=== PATIENT | male | born 1950 | race Caucasian/White ===

== ENCOUNTER 2020-09-17 10:59 | Inpatient (IN) | payer BC, MEDICARE ==
[~2020-09-17] VITALS: Ht 177.8 cm; Wt 88.6 kg
[2020-09-17] VITALS (8 sets, daily range): BP systolic 135–182; BP diastolic 62–83
[~2020-09-17 10:59] MED LIST: ASPI-1265 PO; ATOR10TA87 PO; CLOP75TA34 PO; LOP25T PO; RANI-320 PO
[2020-09-17] MEDS ORDERED: ipratropium/albuterol 3ml nebule NEB ONE (11:40)
[2020-09-17] MEDS ORDERED: methylPREDNISolone sod succ 125mg/2ml vial IV ONE (11:40)
[2020-09-17 12:20] LABS: BASOPHILS % (AUTO) 0.3 % (0-1); EOSINOPHILS % (AUTO) 0.5 % (0-6); HEMATOCRIT 48.3 % (42.0-52.0); HEMOGLOBIN 16.3 g/dl (14.0-17.9); LYMPHOCYTES # (AUTO) 1.1 X10'3 (1.1-4.8); LYMPHOCYTES % (AUTO) 11.3 % (21-51); MEAN CORPUSCULAR HEMOGLOBIN 33.4 PG (27.0-31.0); MEAN CORPUSCULAR HGB CONC 33.8 g/dL (33.0-36.5); MEAN PLATELET VOLUME 8.2 FL (7.4-10.4); MONOCYTES # (AUTO) 1.1 X10'3 (0-0.9); MONOCYTES % (AUTO) 10.9 % (2-12); NEUTROPHILS # (AUTO) 7.6 X10'3 (1.8-7.7); PLATELET COUNT 227 X10'3 (140-440); RED BLOOD COUNT 4.88 X10'6 (4.70-6.10); WHITE BLOOD COUNT 9.9 X10'3 (4.5-11.0)
--- NOTE | 2020-09-17 12:38 | NUR ---
Chris CRISTOBAL notified of troponin of 5.17 and patient is Afib on monitor. PA to order aspirin.
[2020-09-17 12:40] LABS: ALANINE AMINOTRANSFERASE 49 U/L (12-78); ALBUMIN 3.7 G/DL (3.4-5.0); ALBUMIN/GLOBULIN RATIO 1.1 (1.1-1.5); ALKALINE PHOSPHATASE 89 IU/L (46-116); ANION GAP 11 (8-16); ASPARTATE AMINO TRANSFERASE 52 U/L (10-37); BILIRUBIN,TOTAL 0.7 MG/DL (0.1-1.0); BLOOD UREA NITROGEN 15 MG/DL (7-18); BUN/CREATININE RATIO 10.1 (5.4-32.0); CALCIUM 8.4 MG/DL (8.5-10.1); CHLORIDE 104 MMOL/L (99-107); CREATININE 1.49 MG/DL (0.60-1.10); GLUCOSE 93 MG/DL (70-104); POTASSIUM 4.9 MMOL/L (3.5-5.1); SODIUM 141 MMOL/L (135-145); eGFR 46 ML/MIN
[2020-09-17] MEDS ORDERED: aspirin 325mg tablet PO ONE (12:40)
[2020-09-17] MEDS ORDERED: nitroGLYCERIN 0.4mg/hour patch TD ONE (12:55)
[2020-09-17] MEDS ORDERED: METF-900 PO (13:00)
[2020-09-17] MEDS ORDERED: METO25TA6 PO (13:00)
[2020-09-17] MEDS ORDERED: ALBU17AE26 PO (13:00)
[2020-09-17] MEDS ORDERED: IPRA3AMP31 NEB (13:00)
[2020-09-17] MEDS ORDERED: OMEP-50 PO (13:00)
[2020-09-17] MEDS ORDERED: ondansetron/PF 4mg/2ml inj IV PRN ×2 (13:10→20:40)
[2020-09-17] MEDS ORDERED: mag hydrox/Alum hydrox/simeth 30ml oral suspension PO PRN (13:10)
[2020-09-17] MEDS ORDERED: MESSAGE TO PHARMACY PO ONE (13:10)
[2020-09-17] MEDS ORDERED: albuterol 2.5 MG/3 ML nebule NEB PRN (13:10)
[2020-09-17] MEDS ORDERED: magnesium 2GM in 50ml NS 50 ML IV PRN (13:10)
[2020-09-17] MEDS ORDERED: heparin 25,000 UNIT/250ml bag 250 ML IV SCH (13:10)
[2020-09-17] MEDS ORDERED: magnesium 4gm in 100ml NS 100 ML IV PRN (13:10)
[2020-09-17] MEDS ORDERED: insulin Lispro (HumaLOG) vial - multi-dose SQ SCH (13:10)
[2020-09-17] MEDS ORDERED: glucagon, human recombinant 1mg kit SUBCUT PRN (13:10)
[2020-09-17] MEDS ORDERED: dextrose 50%-water 50ml dispensing syringe IV PRN ×2 (13:10)
[2020-09-17] MEDS ORDERED: ipratropium/albuterol 3ml nebule NEB PRN (13:10)
[2020-09-17] MEDS ORDERED: magnesium hydroxide 30ml (MOM) UD suspension PO PRN (13:10)
[2020-09-17] MEDS ORDERED: heparin 10,000 units/1 ML INJ IV PRN (13:10)
[2020-09-17] MEDS ORDERED: dextrose ORAL solution 15 GM/59 ML bottle PO PRN ×2 (13:10)
[2020-09-17] MEDS ORDERED: potassium Cl 40MEQ/1/2NS 520ml 520 ML IV PRN ×2 (13:10)
[2020-09-17] MEDS ORDERED: heparin 10,000 units/1 ML INJ IV ONE (13:10)
[2020-09-17] MEDS ORDERED: acetaminophen 325mg tablet PO PRN (13:10)
[2020-09-17] MEDS ORDERED: potassium Cl 20 mEq SR tablet PO PRN ×2 (13:10)
[2020-09-17 13:38] LABS: PARTIAL THROMBOPLASTIN TIME 25 SECONDS (22-32)
[2020-09-17 14:59] LABS: HEMOGLOBIN A1C 5.8 % (4.5-6.2)
--- NOTE | 2020-09-17 15:11 | NUR ---
Dr. Jerome notified of troponin 6.51. No new orders.
[2020-09-17] MEDS ORDERED: atorvastatin 20mg tablet PO ONE (16:10)
--- NOTE | 2020-09-17 18:08 | NUR ---
DR. HOUSTON NOTIFIED OF TROPONIN 9.19
[2020-09-17] MEDS ORDERED: heparin 1,000unit/ml 10ml vial 10 ML ONE (18:50)
[2020-09-17] MEDS ORDERED: LIDOcaine 1% (10mg/ml)w/preservative injection 20ml MDV ONE (18:50)
[2020-09-17] MEDS ORDERED: midazolam 1 mg/ML 2ml injection ONE ×3 (18:50→19:53)
[2020-09-17] MEDS ORDERED: fentaNYL/PF 50MCG/1 ML 2ML syringe ONE (18:50)
[2020-09-17] MEDS ORDERED: iohexol 350 MG/ML 50ML vial IV ONE (18:51)
[2020-09-17] MEDS ORDERED: iohexol 350MG/ML 100ml bottle IV ONE ×2 (18:51→19:33)
[2020-09-17] MEDS: K and/or MAG REPLACEMENT MC SCH (20:00)
[2020-09-17] MEDS ORDERED: ticagrelor 90mg tablet ONE (20:01)
[2020-09-17] MEDS ORDERED: hydrALAZINE 20mg/ml inj. IV ONE (20:01)
[2020-09-17] MEDS ORDERED: HYDROcodone/acetaminophen 10/325mg tab PO PRN (20:40)
[2020-09-17] MEDS ORDERED: nitroGLYCERIN 0.4mg SUBLingual tab SL PRN (20:40)
[2020-09-17] MEDS ORDERED: OXAZEpam 15mg capsule PO PRN (20:40)
[2020-09-17] MEDS ORDERED: normal saline 1000ml 1,000 ML IV SCH (20:40)
[2020-09-17] MEDS ORDERED: HYDROcodone/acetaminophen 5mg/325mg tablet PO PRN (20:40)
[2020-09-17] MEDS ORDERED: proCHLORperazine 10 MG/2 ml inj IV PRN (20:40)
[2020-09-17] MEDS ORDERED: insulin glargine (Lantus) pen - multi-dose SQ SCH (21:00)
[2020-09-17] MEDS ORDERED: zolpidem 5mg tablet PO SCH (21:00)
[2020-09-17] MEDS: metoprolol tartrate 25mg tablet PO SCH (21:00)
[2020-09-17] MEDS: normal saline 1000ml 1,000 ML IV SCH (21:01)
[2020-09-17] MEDS ORDERED: cloNIDine 0.1 mg tablet PO PRN (21:45)
--- NOTE | 2020-09-17 22:00 | NUR ---
Patient pulled iv out attempting to urinate. Patient disoriented, got up from bed. IV fluids were finished. no IV access, will attempt new access. Groin site no hematoma or issues noted.. Patient returned to bed, bed alarm in use. Patient reminded of call light at bedside, reoriented. Vital signs stable.
--- NOTE | 2020-09-17 23:22 | NUR ---
spoke with patient about use of CPAP at night orders. Patient states he doesn't wear one at home, he returned his unit years ago. I asked him if he'd be willing to try one of ours and he refused. ALICIA corcoran
[2020-09-18 00:15] VITALS: BP 129/64
[2020-09-18 01:15] VITALS: BP 142/69
[2020-09-18] MEDS: normal saline 1000ml 1,000 ML IV SCH (01:40)
[2020-09-18 02:15] VITALS: BP 142/69
[2020-09-18 06:23] LABS: ALANINE AMINOTRANSFERASE 39 U/L (12-78); ALBUMIN 3.3 G/DL (3.4-5.0); ALBUMIN/GLOBULIN RATIO 1.1 (1.1-1.5); ALKALINE PHOSPHATASE 76 IU/L (46-116); ANION GAP 11 (8-16); ASPARTATE AMINO TRANSFERASE 53 U/L (10-37); BILIRUBIN,TOTAL 0.8 MG/DL (0.1-1.0); BLOOD UREA NITROGEN 19 MG/DL (7-18); BUN/CREATININE RATIO 15.8 (5.4-32.0); CALCIUM 8.5 MG/DL (8.5-10.1); CHLORIDE 105 MMOL/L (99-107); CHOL/HDL RATIO 2.5 (0.00-4.99); CHOLESTEROL 160 MG/DL (0-200); GLUCOSE 140 MG/DL (70-104); HDL CHOLESTEROL 63 MG/DL (35-60); LDL CHOLESTEROL 83 MG/DL (50-100); MAGNESIUM 2.5 MG/DL (1.5-2.4); POTASSIUM 4.6 MMOL/L (3.5-5.1); SODIUM 137 MMOL/L (135-145); TOTAL CARBON DIOXIDE 21.5 MMOL/L (24-32); TOTAL PROTEIN 6.3 G/DL (6.4-8.2); TRIGLYCERIDES 117 MG/DL (20-135); eGFR 60 ML/MIN
[2020-09-18 06:25] LABS: BASOPHILS % (AUTO) 0.1 % (0-1); EOSINOPHILS % (AUTO) 0 % (0-6); HEMATOCRIT 44.1 % (42.0-52.0); HEMOGLOBIN 14.9 g/dl (14.0-17.9); LYMPHOCYTES # (AUTO) 0.7 X10'3 (1.1-4.8); MEAN CORPUSCULAR HEMOGLOBIN 33.3 PG (27.0-31.0); MEAN CORPUSCULAR HGB CONC 33.7 g/dL (33.0-36.5); MEAN CORPUSCULAR VOLUME 98.7 FL (78-98); MEAN PLATELET VOLUME 8.3 FL (7.4-10.4); MONOCYTES # (AUTO) 0.5 X10'3 (0-0.9); MONOCYTES % (AUTO) 3.3 % (2-12); NEUTROPHILS # (AUTO) 12.4 X10'3 (1.8-7.7); NEUTROPHILS % (AUTO) 91.6 % (42-75); PLATELET COUNT 207 X10'3 (140-440); RED BLOOD COUNT 4.47 X10'6 (4.70-6.10); WHITE BLOOD COUNT 13.6 X10'3 (4.5-11.0)
[2020-09-18 06:35] VITALS: BP 140/69
[2020-09-18] MEDS ORDERED: pantoprazole 40mg Tablet.DR PO SCH (07:30)
[2020-09-18] MEDS ORDERED: metoprolol tartrate 25mg tablet PO SCH (08:00)
[2020-09-18] MEDS ORDERED: aspirin 81mg tablet.DR PO SCH (08:00)
[2020-09-18] MEDS: K and/or MAG REPLACEMENT MC SCH (08:00)
[2020-09-18] MEDS ORDERED: atorvastatin 20mg tablet PO SCH (08:00)
[2020-09-18] MEDS ORDERED: ticagrelor 90mg tablet PO SCH (08:00)
[2020-09-18] MEDS ORDERED: ROSU5CAP PO (09:17)
[2020-09-18] MEDS ORDERED: TICA90TA PO (09:17)
[2020-09-18] MEDS: metoprolol tartrate 25mg tablet PO SCH (10:22)
[2020-09-18 11:00] VITALS: BP 141/66
[2020-09-18 12:23] VITALS: BP 148/72
== END 2020-09-18 15:41 | disposition home or self-care (01) | DRG 246 ==
LOC: ER 11:01 → ED HOLD 13:07 → MED 3N 20:00
PROVIDERS: ADMIT Family Medicine; ATTEND Family Medicine
PROC: 4A023N7 Measurement of Cardiac Sampling and Pressure, Left Heart, Percutaneous Approach (ICD-10-PCS; principal; 2020-09-17)
PROC: 027036Z Dilation of Coronary Artery, One Artery with Three Drug-eluting Intraluminal Devices, Percutaneous Approach (ICD-10-PCS; 2020-09-17)
PROC: B2111ZZ Fluoroscopy of Multiple Coronary Arteries using Low Osmolar Contrast (ICD-10-PCS; 2020-09-17)
PROC: B2151ZZ Fluoroscopy of Left Heart using Low Osmolar Contrast (ICD-10-PCS; 2020-09-17)
DX: I21.4 Non-ST elevation (NSTEMI) myocardial infarction (principal); N17.0 Acute kidney failure with tubular necrosis; D72.823 Leukemoid reaction; E78.00 Pure hypercholesterolemia, unspecified; E86.0 Dehydration; I10 Essential (primary) hypertension; I25.10 Atherosclerotic heart disease of native coronary artery without angina pectoris; I73.9 Peripheral vascular disease, unspecified; G47.33 Obstructive sleep apnea (adult) (pediatric); J44.9 Chronic obstructive pulmonary disease, unspecified; W18.39XA Other fall on same level, initial encounter; R73.01 Impaired fasting glucose; R55 Syncope and collapse; S00.83XA Contusion of other part of head, initial encounter; Z79.82 Long term (current) use of aspirin; Z79.84 Long term (current) use of oral hypoglycemic drugs; Z79.899 Other long term (current) drug therapy; Z82.49 Family history of ischemic heart disease and other diseases of the circulatory system; Z87.442 Personal history of urinary calculi; Z90.49 Acquired absence of other specified parts of digestive tract; Z95.5 Presence of coronary angioplasty implant and graft; Y93.89 Activity, other specified; Y92.098 Other place in other non-institutional residence as the place of occurrence of the external cause; Y99.8 Other external cause status
CPT/HCPCS: 93306; 93458; 96374; 99285; C9600; 36415; 70450; 71045; 80053; 80061; 82948; 83036; 83735; 83880; 84484; 85025; 85730; 87081; 93005; 94640; 94760; 97116; 97161; 97530; 99152; 99153; A4620; A6258; C1725; C1751; C1760; C1769; C1874; C1894; G0378; J0360; J1644; J1815; J2001; J2250; J2930; J3010; J7030; Q9967

== ENCOUNTER 2021-03-07 06:21 | Day surgery (SDC) | payer BC, MEDICARE ==
[2021-03-07] VITALS (8 sets, daily range): BP systolic 131–138; BP diastolic 60–75
[~2021-03-07] VITALS: Ht 180.3 cm; Wt 93.5 kg
[~2021-03-07 06:21] MED LIST changes: +ALBU17AE26 PO; -ASPI-1265 PO; -ATOR10TA87 PO; -CLOP75TA34 PO; +IPRA3AMP31 NEB; -LOP25T PO; +METF-900 PO; +METO25TA6 PO; +OMEP-50 PO; -RANI-320 PO; +ROSU5CAP PO; +TICA90TA PO
[2021-03-07] MEDS ORDERED: normal saline 1,000 ML IV SCH (06:50)
[2021-03-07] MEDS ORDERED: diphenhydrAMINE 25mg capsule PO PRN (06:50)
[2021-03-07] MEDS ORDERED: TIOT4MIS2 PO (06:59)
[2021-03-07] MEDS ORDERED: ATOR40TA72 PO (06:59)
[2021-03-07] MEDS ORDERED: CLOP75TA34 PO (06:59)
[2021-03-07] MEDS ORDERED: ASPI-1265 PO (07:03)
[2021-03-07] MEDS ORDERED: METO-539 PO (07:03)
[2021-03-07] MEDS ORDERED: METF-436 PO (07:03)
[2021-03-07] MEDS ORDERED: ALBU8HFA PO (07:04)
[2021-03-07 08:05] LABS: ALBUMIN 3.5 G/DL (3.4-5.0); ANION GAP 9 (8-16); BLOOD UREA NITROGEN 19 MG/DL (7-18); BUN/CREATININE RATIO 17.6 (5.4-32.0); CALCIUM 8.7 MG/DL (8.5-10.1); CHLORIDE 106 MMOL/L (99-107); CREATININE 1.08 MG/DL (0.60-1.10); GLUCOSE 132 MG/DL (70-104); MAGNESIUM 2.3 MG/DL (1.5-2.4); POTASSIUM 5.3 MMOL/L (3.5-5.1); SODIUM 139 MMOL/L (135-145); TOTAL CARBON DIOXIDE 24.2 MMOL/L (24-32); eGFR 67 ML/MIN
[2021-03-07 08:08] LABS: BASOPHILS % (AUTO) 0.3 % (0-1); EOSINOPHILS % (AUTO) 0.3 % (0-6); HEMATOCRIT 46.6 % (42.0-52.0); HEMOGLOBIN 15.4 g/dl (14.0-17.9); LYMPHOCYTES # (AUTO) 0.8 X10'3 (1.1-4.8); LYMPHOCYTES % (AUTO) 6.5 % (21-51); MEAN CORPUSCULAR HEMOGLOBIN 31.7 PG (27.0-31.0); MEAN CORPUSCULAR HGB CONC 33.1 g/dL (33.0-36.5); MEAN CORPUSCULAR VOLUME 95.8 FL (78-98); MEAN PLATELET VOLUME 8.7 FL (7.4-10.4); MONOCYTES # (AUTO) 0.4 X10'3 (0-0.9); MONOCYTES % (AUTO) 3.8 % (2-12); NEUTROPHILS # (AUTO) 10.4 X10'3 (1.8-7.7); NEUTROPHILS % (AUTO) 89.1 % (42-75); PLATELET COUNT 233 X10'3 (140-440); RED BLOOD COUNT 4.86 X10'6 (4.70-6.10); RED CELL DISTRIBUTION WIDTH 14.7 % (11.5-14.5); WHITE BLOOD COUNT 11.7 X10'3 (4.5-11.0)
[2021-03-07] MEDS ORDERED: midazolam 1 mg/ML 2ml injection ONE ×3 (08:52→10:45)
[2021-03-07] MEDS ORDERED: heparin 1,000unit/ml 10ml vial 10 ML ONE ×2 (08:52→11:23)
[2021-03-07] MEDS ORDERED: proCHLORperazine 10 MG/2 ml inj ONE (08:52)
[2021-03-07] MEDS ORDERED: fentaNYL/PF 50MCG/1 ML 2ML syringe ONE ×3 (08:52→11:04)
[2021-03-07] MEDS ORDERED: LIDOcaine 1% (10mg/ml)w/preservative injection 20ml MDV ONE (08:52)
[2021-03-07] MEDS ORDERED: iohexol 350 MG/1 ML 200ml bottle ONE (08:53)
[2021-03-07] MEDS ORDERED: verapamil 2.5 mg/ml inj IV ONE (09:49)
[2021-03-07] MEDS ORDERED: nitroGLYCERIN-Tridil 50MG/D5W 250 ML IV ONE (09:49)
[2021-03-07] MEDS ORDERED: iohexol 350 MG/ML 50ML vial IV ONE (10:04)
[2021-03-07] MEDS ORDERED: hydrALAZINE 20mg/ml inj. IV ONE (10:54)
[2021-03-07] MEDS ORDERED: clopidogrel 300mg tablet ONE (11:48)
[2021-03-07] MEDS ORDERED: ondansetron/PF 4mg/2ml inj IV PRN (12:15)
[2021-03-07] MEDS ORDERED: HYDROcodone/acetaminophen 10/325mg tab PO PRN (12:15)
[2021-03-07] MEDS ORDERED: proCHLORperazine 10 MG/2 ml inj IV PRN (12:15)
[2021-03-07] MEDS ORDERED: normal saline 1000ml 1,000 ML IV SCH (12:15)
[2021-03-07] MEDS ORDERED: HYDROcodone/acetaminophen 5mg/325mg tablet PO PRN (12:15)
== END 2021-03-07 16:00 | disposition home or self-care (01) ==
LOC: SSTAY O 06:21
PROVIDERS: ATTEND Internal Medicine Cardiovascular Disease
DX: E11.51 Type 2 diabetes mellitus with diabetic peripheral angiopathy without gangrene (principal); I70.213 Atherosclerosis of native arteries of extremities with intermittent claudication, bilateral legs; I25.10 Atherosclerotic heart disease of native coronary artery without angina pectoris; E78.00 Pure hypercholesterolemia, unspecified; J44.9 Chronic obstructive pulmonary disease, unspecified; I10 Essential (primary) hypertension; Z95.5 Presence of coronary angioplasty implant and graft; Z79.84 Long term (current) use of oral hypoglycemic drugs; Z79.899 Other long term (current) drug therapy; Z98.890 Other specified postprocedural states; Z90.49 Acquired absence of other specified parts of digestive tract; Z82.49 Family history of ischemic heart disease and other diseases of the circulatory system
CPT/HCPCS: 36415; 37221; 37226; 75630; 76937; 80048; 83735; 85025; 85610; 93005; 99152; 99153; C1725; C1760; C1769; C1876; C1887; C1894; J0360; J0780; J1644; J2001; J2250; J3010; Q9967; A4620; A5120; A6258; C2623; J3490

== ENCOUNTER 2022-04-24 06:24 | Day surgery (SDC) | payer BC ==
[~2022-04-24] VITALS: Ht 177.8 cm; Wt 92.4 kg
[2022-04-24] VITALS (9 sets, daily range): BP systolic 94–181; BP diastolic 57–73
[~2022-04-24 06:24] MED LIST changes: -ALBU17AE26 PO; +ALBU8HFA PO; +ASPI-1265 PO; +ATOR40TA72 PO; +CLOP75TA34 PO; +METF-436 PO; -METF-900 PO; +METO-539 PO; -METO25TA6 PO; -OMEP-50 PO; -ROSU5CAP PO; -TICA90TA PO; +TIOT4MIS2 PO
[2022-04-24] MEDS ORDERED: normal saline 1,000 ML IV SCH (06:40)
[2022-04-24] MEDS ORDERED: diphenhydrAMINE 25mg capsule PO PRN (06:40)
[2022-04-24 07:22] LABS: HEMATOCRIT 46.1 % (42.0-52.0); HEMOGLOBIN 15.3 g/dl (14.0-17.9); MEAN CORPUSCULAR HEMOGLOBIN 30.8 PG (27.0-31.0); MEAN CORPUSCULAR HGB CONC 33.2 g/dL (33.0-36.5); MEAN CORPUSCULAR VOLUME 92.7 FL (78-98); PLATELET COUNT 255 X10'3 (140-440); RED BLOOD COUNT 4.97 X10'6 (4.70-6.10); RED CELL DISTRIBUTION WIDTH 14.1 % (11.5-14.5); WHITE BLOOD COUNT 10.3 X10'3 (4.5-11.0)
[2022-04-24 07:23] LABS: BASOPHILS # (AUTO) 0.1 X10'3 (0-0.2); BASOPHILS % (AUTO) 0.8 % (0-1); EOSINOPHILS # (AUTO) 0.9 X10'3 (0-0.9); EOSINOPHILS % (AUTO) 8.6 % (0-6); LYMPHOCYTES # (AUTO) 1.7 X10'3 (1.1-4.8); LYMPHOCYTES % (AUTO) 16.3 % (21-51); MONOCYTES % (AUTO) 10.1 % (2-12); NEUTROPHILS # (AUTO) 6.6 X10'3 (1.8-7.7); NEUTROPHILS % (AUTO) 64.2 % (42-75)
[2022-04-24 07:26] LABS: ALBUMIN 3.5 G/DL (3.4-5.0); BLOOD UREA NITROGEN 11 MG/DL (7-18); BUN/CREATININE RATIO 9.1 (5.4-32.0); CREATININE 1.21 MG/DL (0.60-1.10); GLUCOSE 102 MG/DL (70-104); MAGNESIUM 1.9 MG/DL (1.5-2.4); TOTAL CARBON DIOXIDE 23.8 MMOL/L (24-32); eGFR 59 ML/MIN
[2022-04-24 07:28] LABS: ANION GAP 9 (8-16); CHLORIDE 105 MMOL/L (99-107); POTASSIUM 4.2 MMOL/L (3.5-5.1); SODIUM 138 MMOL/L (135-145)
[2022-04-24] MEDS ORDERED: BUDE10.7 PO (07:35)
[2022-04-24] MEDS ORDERED: LIDOcaine 1% 30ml preserv. free vial ONE (08:36)
[2022-04-24] MEDS ORDERED: iohexol 350MG/ML 100ml bottle IV ONE ×2 (08:36→11:01)
[2022-04-24] MEDS ORDERED: fentaNYL/PF 50MCG/1 ML 2ML syringe ONE (08:36)
[2022-04-24] MEDS ORDERED: midazolam 1 mg/ML 2ml injection ONE ×3 (08:36→11:27)
[2022-04-24] MEDS ORDERED: diphenhydrAMINE 50 mg/ml inj ONE (09:30)
[2022-04-24] MEDS ORDERED: proCHLORperazine 10 MG/2 ml inj ONE (09:30)
[2022-04-24] MEDS ORDERED: heparin 1,000unit/ml 10ml vial 10 ML ONE ×2 (10:03→10:42)
[2022-04-24] MEDS ORDERED: HYDROmorphone 1 mg/ml syringe ONE (10:08)
[2022-04-24] MEDS ORDERED: hydrALAZINE 20mg/ml inj. IV ONE (11:46)
[2022-04-24] MEDS ORDERED: nitroGLYCERIN-Tridil 50MG/D5W 250 ML IV ONE (12:08)
[2022-04-24] MEDS ORDERED: clopidogrel 300mg tablet ONE (12:23)
[2022-04-24] MEDS ORDERED: normal saline 1000ml 1,000 ML IV SCH (13:15)
[2022-04-24] MEDS ORDERED: proCHLORperazine 10 MG/2 ml inj IV PRN (13:15)
[2022-04-24] MEDS ORDERED: HYDROcodone/acetaminophen 5mg/325mg tablet PO PRN (13:15)
[2022-04-24] MEDS ORDERED: HYDROcodone/acetaminophen 10/325mg tab PO PRN (13:15)
[2022-04-24] MEDS ORDERED: ondansetron/PF 4mg/2ml inj IV PRN (13:15)
[2022-04-24] MEDS ORDERED: rivaroxaban 20mg tablet PO ONE (16:00)
== END 2022-04-24 16:15 | disposition home or self-care (01) ==
LOC: SSTAY O 06:24
PROVIDERS: ATTEND Internal Medicine Cardiovascular Disease
DX: I70.211 Atherosclerosis of native arteries of extremities with intermittent claudication, right leg (principal); F10.10 Alcohol abuse, uncomplicated; I25.10 Atherosclerotic heart disease of native coronary artery without angina pectoris; E11.9 Type 2 diabetes mellitus without complications; E78.00 Pure hypercholesterolemia, unspecified; J44.9 Chronic obstructive pulmonary disease, unspecified; I10 Essential (primary) hypertension; Z79.01 Long term (current) use of anticoagulants; Z82.49 Family history of ischemic heart disease and other diseases of the circulatory system; Z98.890 Other specified postprocedural states; Z95.5 Presence of coronary angioplasty implant and graft; Z87.891 Personal history of nicotine dependence; Z79.899 Other long term (current) drug therapy
CPT/HCPCS: 36415; 37226; 80048; 82948; 83735; 85025; 85610; 99152; 99153; C1714; C1725; C1760; C1769; C1876; C1887; C1894; C2623; J0360; J0780; J1170; J1200; J1644; J2250; J3010; J3490; J7030; Q0163; Q9967; 37227; 92928

== ENCOUNTER 2022-06-02 05:38 | Day surgery (SDC) | payer BC ==
[2022-06-02] VITALS (9 sets, daily range): BP systolic 149–167; BP diastolic 63–70
[~2022-06-02] VITALS: Ht 177.8 cm; Wt 90.2 kg
[~2022-06-02 05:38] MED LIST changes: -ASPI-1265 PO; +BUDE10.7 PO; -TIOT4MIS2 PO
[2022-06-02] MEDS ORDERED: diphenhydrAMINE 25mg capsule PO PRN (06:35)
[2022-06-02] MEDS ORDERED: normal saline 1,000 ML IV SCH (06:35)
[2022-06-02 06:48] LABS: BASOPHILS # (AUTO) 0.1 X10'3 (0-0.2); BASOPHILS % (AUTO) 0.5 % (0-1); EOSINOPHILS # (AUTO) 0.6 X10'3 (0-0.9); HEMATOCRIT 50.1 % (42.0-52.0); HEMOGLOBIN 16.1 g/dl (14.0-17.9); LYMPHOCYTES # (AUTO) 2.6 X10'3 (1.1-4.8); LYMPHOCYTES % (AUTO) 17.7 % (21-51); MEAN CORPUSCULAR HEMOGLOBIN 29.8 PG (27.0-31.0); MEAN CORPUSCULAR HGB CONC 32.1 g/dL (33.0-36.5); MEAN CORPUSCULAR VOLUME 92.7 FL (78-98); MONOCYTES # (AUTO) 1.7 X10'3 (0-0.9); MONOCYTES % (AUTO) 11.6 % (2-12); NEUTROPHILS # (AUTO) 9.9 X10'3 (1.8-7.7); NEUTROPHILS % (AUTO) 66.2 % (42-75); PLATELET COUNT 351 X10'3 (140-440); RED CELL DISTRIBUTION WIDTH 14.6 % (11.5-14.5); WHITE BLOOD COUNT 14.9 X10'3 (4.5-11.0)
[2022-06-02 06:55] LABS: ALBUMIN 4.6 G/DL (3.4-5.0); ANION GAP 8 (8-16); BLOOD UREA NITROGEN 16 MG/DL (7-18); BUN/CREATININE RATIO 14.2 (5.4-32.0); CALCIUM 9.2 MG/DL (8.5-10.1); CHLORIDE 100 MMOL/L (99-107); CREATININE 1.13 MG/DL (0.60-1.10); GLUCOSE 102 MG/DL (70-104); MAGNESIUM 2.3 MG/DL (1.5-2.4); POTASSIUM 4.1 MMOL/L (3.5-5.1); SODIUM 137 MMOL/L (135-145); TOTAL CARBON DIOXIDE 28.9 MMOL/L (24-32); eGFR 64 ML/MIN
[2022-06-02] MEDS ORDERED: heparin 1,000unit/ml 10ml vial 10 ML ONE ×2 (08:58→10:59)
[2022-06-02] MEDS ORDERED: fentaNYL/PF 50MCG/1 ML 2ML syringe ONE (08:58)
[2022-06-02] MEDS ORDERED: midazolam 1 mg/ML 2ml injection ONE ×2 (08:58→09:39)
[2022-06-02] MEDS ORDERED: heparin 1,000 UNITS/NS 500ml 500 ML ONE (08:58)
[2022-06-02] MEDS ORDERED: iohexol 350MG/ML 100ml bottle IV ONE ×2 (08:58→10:14)
[2022-06-02] MEDS ORDERED: LIDOcaine 1% 30ml preserv. free vial ONE (09:26)
[2022-06-02] MEDS ORDERED: HYDROcodone/acetaminophen 5mg/325mg tablet PO PRN (11:35)
[2022-06-02] MEDS ORDERED: HYDROcodone/acetaminophen 10/325mg tab PO PRN (11:35)
[2022-06-02] MEDS ORDERED: ondansetron/PF 4mg/2ml inj IV PRN (11:35)
== END 2022-06-02 15:00 | disposition home or self-care (01) ==
LOC: SSTAY O 05:38
PROVIDERS: ATTEND Internal Medicine Cardiovascular Disease
DX: E11.51 Type 2 diabetes mellitus with diabetic peripheral angiopathy without gangrene (principal); I70.211 Atherosclerosis of native arteries of extremities with intermittent claudication, right leg; J44.9 Chronic obstructive pulmonary disease, unspecified; I25.10 Atherosclerotic heart disease of native coronary artery without angina pectoris; I10 Essential (primary) hypertension; Z79.899 Other long term (current) drug therapy; Z79.01 Long term (current) use of anticoagulants; Z79.84 Long term (current) use of oral hypoglycemic drugs; Z87.442 Personal history of urinary calculi; Z98.890 Other specified postprocedural states; Z90.49 Acquired absence of other specified parts of digestive tract; Z82.49 Family history of ischemic heart disease and other diseases of the circulatory system
CPT/HCPCS: 36415; 37224; 75710; 80048; 82948; 83735; 85025; 85610; 93005; 93926; 99152; 99153; C1725; C1760; C1769; C1887; C1894; J1644; J2250; J3010; J3490; J7030; Q0163; Q9967; 37220; A4620; A6258

== ENCOUNTER 2022-09-04 08:14 | Outpatient (CLI) | payer MEDICARE, BC ==
[~2022-09-04 08:14] MED LIST changes: +HYDR-3964 PO; -METF-436 PO; +METF-900 PO
== END 2022-09-04 23:59 | disposition home or self-care (01) ==
LOC: VAS 08:14
PROVIDERS: ATTEND Thoracic Surgery (Cardiothoracic Vascular Surgery)
DX: I73.9 Peripheral vascular disease, unspecified (principal); M25.861 Other specified joint disorders, right knee; Z95.828 Presence of other vascular implants and grafts
CPT/HCPCS: 93922; 93926

== ENCOUNTER 2022-12-22 08:36 | Outpatient (CLI) | payer BC, MEDICARE | END 2022-12-22 23:59 | disposition home or self-care (01) | LOC: VAS 08:36 | PROVIDERS: ATTEND Thoracic Surgery (Cardiothoracic Vascular Surgery) | DX: I70.211 Atherosclerosis of native arteries of extremities with intermittent claudication, right leg (principal) | CPT/HCPCS: 93922; 93926 ==

== ENCOUNTER 2023-06-08 10:21 | Inpatient (IN) | payer MEDICARE, BC ==
[~2023-06-08] VITALS: Ht 177.8 cm; Wt 84.1 kg
[2023-06-08 11:23] LABS: RED BLOOD COUNT 5.25 X10'6 (4.70-6.10)
[2023-06-08 11:27] LABS: BASOPHILS # (AUTO) 0.1 X10'3 (0-0.2); BASOPHILS % (AUTO) 0.3 % (0-1); EOSINOPHILS # (AUTO) 0.3 X10'3 (0-0.9); EOSINOPHILS % (AUTO) 1.7 % (0-6); HEMATOCRIT 45.1 % (42.0-52.0); HEMOGLOBIN 14.8 g/dl (14.0-17.9); LYMPHOCYTES % (AUTO) 13.5 % (21-51); MEAN CORPUSCULAR HEMOGLOBIN 28.2 PG (27.0-31.0); MEAN CORPUSCULAR HGB CONC 32.7 g/dL (33.0-36.5); MEAN PLATELET VOLUME 8.7 FL (7.4-10.4); MONOCYTES # (AUTO) 1.7 X10'3 (0-0.9); MONOCYTES % (AUTO) 11.5 % (2-12); NEUTROPHILS # (AUTO) 10.9 X10'3 (1.8-7.7); PLATELET COUNT 219 X10'3 (140-440); RED CELL DISTRIBUTION WIDTH 16.2 % (11.5-14.5); WHITE BLOOD COUNT 14.9 X10'3 (4.5-11.0)
[2023-06-08 11:43] LABS: ALANINE AMINOTRANSFERASE 23 U/L (12-78); ALBUMIN 3.7 G/DL (3.4-5.0); ALBUMIN/GLOBULIN RATIO 1.2 (1.1-1.5); ALKALINE PHOSPHATASE 90 IU/L (46-116); ANION GAP 11 (8-16); ASPARTATE AMINO TRANSFERASE 17 U/L (10-37); BILIRUBIN,TOTAL 0.9 MG/DL (0.1-1.0); BLOOD UREA NITROGEN 22 MG/DL (7-18); BUN/CREATININE RATIO 18.8 (10.0-20.0); CALCIUM 8.7 MG/DL (8.5-10.1); CHLORIDE 105 MMOL/L (99-107); CREATININE 1.17 MG/DL (0.60-1.10); GLUCOSE 113 MG/DL (70-104); POTASSIUM 3.9 MMOL/L (3.5-5.1); SODIUM 137 MMOL/L (135-145); TOTAL CARBON DIOXIDE 21.2 MMOL/L (24-32); TOTAL PROTEIN 6.9 G/DL (6.4-8.2); eCRCL 58 ML/MIN; eGFR 61 ML/MIN
[2023-06-08 11:53] LABS: PRO BRAIN NATRIURETIC PEPTIDE 604 PG/ML (0-125)
[2023-06-08] MEDS ORDERED: magnesium 2GM in 50ml NS 50 ML IV PRN (13:45)
[2023-06-08] MEDS: normal saline 1000ml 1,000 ML IV SCH (13:45)
[2023-06-08] MEDS ORDERED: potassium Cl 40MEQ/1/2NS 520ml 520 ML IV PRN (13:45)
[2023-06-08] MEDS ORDERED: ondansetron/PF 4mg/2ml inj IV PRN (13:45)
[2023-06-08] MEDS ORDERED: potassium Cl 20 mEq SR tablet PO PRN ×2 (13:45)
[2023-06-08] MEDS ORDERED: acetaminophen 325mg tablet PO PRN (13:45)
[2023-06-08] MEDS ORDERED: PERFLUTREN PROTEIN-A MICROSPHR (Optison) 0.22 MG/ML 3ML VIAL IV ONE (13:45)
[2023-06-08] MEDS ORDERED: magnesium 4gm in 100ml NS 100 ML IV PRN (13:45)
[2023-06-08] MEDS ORDERED: mag hydrox/Alum hydrox/simeth 30ml oral suspension PO PRN (13:45)
[2023-06-08] MEDS ORDERED: iohexol 350MG/ML 100ml bottle IV ONE (14:38)
[2023-06-08] MEDS ORDERED: ipratropium/albuterol 3ml nebule NEB PRN (16:55)
[2023-06-08 20:00] VITALS: RESP 23; O2SAT 97
[2023-06-08] MEDS: K and/or MAG REPLACEMENT MC SCH (20:00)
[2023-06-08] MEDS: docusate sod 100mg capsule PO SCH (20:00)
[2023-06-08 21:43] VITALS: PULSE 73; RESP 20; O2SAT 99
[2023-06-08 22:00] VITALS: BP 157/64; PULSE 77; RESP 23; TEMP 97; O2SAT 97
[2023-06-08 23:11] VITALS: PULSE 80; RESP 27; O2SAT 95
[2023-06-09] MEDS: normal saline 1000ml 1,000 ML IV SCH (00:55)
[2023-06-09 02:00] VITALS: BP 173/67; PULSE 84; RESP 27; TEMP 97.3; O2SAT 95
[2023-06-09 02:52] VITALS: PULSE 82; RESP 27; O2SAT 97
[2023-06-09 06:00] VITALS: BP 164/70; PULSE 76; RESP 27; TEMP 97.5; O2SAT 97
[2023-06-09 06:25] LABS: BASOPHILS # (AUTO) 0.1 X10'3 (0-0.2); BASOPHILS % (AUTO) 0.6 % (0-1); EOSINOPHILS # (AUTO) 0.4 X10'3 (0-0.9); EOSINOPHILS % (AUTO) 4.1 % (0-6); HEMATOCRIT 40.7 % (42.0-52.0); HEMOGLOBIN 13.2 g/dl (14.0-17.9); LYMPHOCYTES # (AUTO) 1.7 X10'3 (1.1-4.8); MEAN CORPUSCULAR HEMOGLOBIN 28.1 PG (27.0-31.0); MEAN CORPUSCULAR HGB CONC 32.5 g/dL (33.0-36.5); MEAN CORPUSCULAR VOLUME 86.3 FL (78-98); MEAN PLATELET VOLUME 8.5 FL (7.4-10.4); MONOCYTES % (AUTO) 10.2 % (2-12); NEUTROPHILS # (AUTO) 6.9 X10'3 (1.8-7.7); NEUTROPHILS % (AUTO) 68.1 % (42-75); PLATELET COUNT 173 X10'3 (140-440); RED BLOOD COUNT 4.71 X10'6 (4.70-6.10); RED CELL DISTRIBUTION WIDTH 16.6 % (11.5-14.5); WHITE BLOOD COUNT 10.1 X10'3 (4.5-11.0)
[2023-06-09 06:44] LABS: ALANINE AMINOTRANSFERASE 20 U/L (12-78); ALBUMIN 3.1 G/DL (3.4-5.0); ALBUMIN/GLOBULIN RATIO 1.1 (1.1-1.5); ALKALINE PHOSPHATASE 74 IU/L (46-116); ANION GAP 10 (8-16); ASPARTATE AMINO TRANSFERASE 17 U/L (10-37); BLOOD UREA NITROGEN 18 MG/DL (7-18); CALCIUM 7.6 MG/DL (8.5-10.1); CHLORIDE 106 MMOL/L (99-107); GLUCOSE 89 MG/DL (70-104); MAGNESIUM 2.2 MG/DL (1.5-2.4); POTASSIUM 3.8 MMOL/L (3.5-5.1); SODIUM 138 MMOL/L (135-145); TOTAL CARBON DIOXIDE 22.3 MMOL/L (24-32); TOTAL PROTEIN 5.8 G/DL (6.4-8.2); eCRCL 68 ML/MIN; eGFR 73 ML/MIN
[2023-06-09 08:00] VITALS: RESP 23; O2SAT 97
[2023-06-09] MEDS ORDERED: Budesonide/Glycopyr/Formoterol (Breztri Aerosphere Inhaler) IH SCH (08:00)
[2023-06-09] MEDS ORDERED: clopidogrel 75mg tablet PO SCH (08:00)
[2023-06-09] MEDS ORDERED: atorvastatin 20mg tablet PO SCH (08:00)
[2023-06-09] MEDS: K and/or MAG REPLACEMENT MC SCH (08:00)
[2023-06-09] MEDS: docusate sod 100mg capsule PO SCH (08:51)
[2023-06-09 10:53] LABS: CHOLESTEROL 115 MG/DL (0-200); HDL CHOLESTEROL 57 MG/DL (35-60); LDL CHOLESTEROL 43 MG/DL (50-100); TRIGLYCERIDES 98 MG/DL (20-135)
[2023-06-09] MEDS ORDERED: ASPI81TA52 PO (15:29)
== END 2023-06-09 17:54 | disposition home health service (06) | DRG 64 ==
LOC: ER 10:22 → ED HOLD 13:53 → EDBEDREQ 15:43 → PCU 3S 17:02
PROVIDERS: ADMIT Family Medicine; ATTEND Family Medicine
PROC: B3251ZZ Computerized Tomography (CT Scan) of Bilateral Common Carotid Arteries using Low Osmolar Contrast (ICD-10-PCS; principal; 2023-06-08)
PROC: B32G1ZZ Computerized Tomography (CT Scan) of Bilateral Vertebral Arteries using Low Osmolar Contrast (ICD-10-PCS; 2023-06-08)
PROC: B32R1ZZ Computerized Tomography (CT Scan) of Intracranial Arteries using Low Osmolar Contrast (ICD-10-PCS; 2023-06-08)
PROC: B3281ZZ Computerized Tomography (CT Scan) of Bilateral Internal Carotid Arteries using Low Osmolar Contrast (ICD-10-PCS; 2023-06-08)
DX: I63.89 Other cerebral infarction (principal); I21.A1 Myocardial infarction type 2; N17.9 Acute kidney failure, unspecified; I25.10 Atherosclerotic heart disease of native coronary artery without angina pectoris; I73.9 Peripheral vascular disease, unspecified; Z66 Do not resuscitate; I50.9 Heart failure, unspecified; G47.33 Obstructive sleep apnea (adult) (pediatric); D72.829 Elevated white blood cell count, unspecified; J44.9 Chronic obstructive pulmonary disease, unspecified; Z90.49 Acquired absence of other specified parts of digestive tract; Z79.01 Long term (current) use of anticoagulants; Z95.5 Presence of coronary angioplasty implant and graft; Z79.82 Long term (current) use of aspirin; Z79.84 Long term (current) use of oral hypoglycemic drugs; Z79.899 Other long term (current) drug therapy; Z82.49 Family history of ischemic heart disease and other diseases of the circulatory system; Z87.442 Personal history of urinary calculi
CPT/HCPCS: 36415; 70450; 70496; 70498; 70551; 72131; 80053; 80061; 82948; 83735; 83880; 84484; 85025; 93005; 93306; 94760; 97161; 97530; 99285; A6258; G0378; J3490; J7030; Q9967

== ENCOUNTER 2025-01-16 05:56 | Day surgery (SDC) | payer BC, MEDICARE ==
[2025-01-12 10:52] LABS: MEAN PLATELET VOLUME 8.1 FL (7.4-10.4); RED CELL DISTRIBUTION WIDTH 15.4 % (11.5-14.5)
--- NOTE | 2025-01-12 10:57 | RADIOLOGY REPORT ---
Procedure: CT CT CHEST ION Reason for study/Clinical History: LUNG MASS Comparison Study: None Exam Date: 01/12/2025 10:26 AM TECHNIQUE: Multidetector CT of the chest was performed from the lung apices to the upper abdomen with out the use of intravenous contract. Axial, coronal and sagittal multiplanar reformats were performed . Radiation Dose Information: CT Dose: CTDI volume is 25 mGy. Dose-length product is 250 mGy*cm The dose indicators for CT are the volume Computed Tomography (CT) Dose Index (CTDIvol) and the Dose Length Product (DLP), and are measured in units of mGy and mGy-cm, respectively. These indicators are not patient dose, but values generated from the CT scanner acquisition factors. The report includes radiation exposure data for exposures received during this examination. FINDINGS: There is 18 mm right lower lobe lung mass. diffuse emphysema. IMPRESSION: There is 18 mm right lower lobe lung mass. diffuse emphysema. Nondiagnostic study as examination was only performed for biopsy purposes Radiation optimization: All CT scans at this facility use at least one of these dose optimization margaux hniques: automated exposure control mA and/or kV adjustment per patient size (includes targeted exam s where dose is matched to clinical indication) or iterative reconstruction.
[2025-01-12 11:32] LABS: CREATININE 1.06 MG/DL (0.60-1.10); TOTAL CARBON DIOXIDE 24.6 MMOL/L (24-32); eGFR 68 ML/MIN
[~2025-01-16] VITALS: Ht 177.8 cm; Wt 88.3 kg
[2025-01-16] VITALS (11 sets, daily range): BP systolic 120–175; BP diastolic 56–94; PULSE 51–95; RESP 15–24; TEMP 97.6; O2SAT 93–100
[2025-01-16] MEDS: DOCUMENT DATE & TIME OF BETA-BLOCKER PO ONE (04:30)
[~2025-01-16 05:56] MED LIST changes: -HYDR-3964 PO; -IPRA3AMP31 NEB; +LOSA25TA41 PO; -METF-900 PO
[2025-01-16] MEDS: ringers solution, lacted 1,000 ML IV SCH (06:46)
[2025-01-16] MEDS ORDERED: ringers solution, lacted 1,000 ML IV SCH (08:10)
[2025-01-16] MEDS ORDERED: ondansetron/PF 4mg/2ml inj IV PRN (08:10)
[2025-01-16] MEDS ORDERED: morphine 4 MG/ML inj SYRINge IV PRN (08:10)
[2025-01-16] MEDS ORDERED: HYDROmorphone/PF 0.2 MG/ML SYRINGE IV PRN ×2 (08:10)
[2025-01-16] MEDS ORDERED: hydrALAZINE 20mg/ml inj. IV PRN (08:10)
[2025-01-16] MEDS ORDERED: acetaminophen 1,000mg/100ml IV 100 ML IV PRN (08:10)
[2025-01-16] MEDS ORDERED: midazolam 1 mg/ML 2ml injection ONE (08:12)
[2025-01-16] MEDS ORDERED: fentaNYL/PF 50MCG/1 ML 2ML syringe ONE (08:12)
[2025-01-16] MEDS ORDERED: dexamethasone sod phosphate 4mg/ml inj. ONE (08:25)
[2025-01-16] MEDS ORDERED: ondansetron/PF 4mg/2ml inj ONE (08:25)
[2025-01-16] MEDS ORDERED: propofol inj 20 ML IV ONE (08:26)
[2025-01-16] MEDS ORDERED: LIDOcaine 2% (20mg/ml) 5ml vial ONE (08:26)
[2025-01-16] MEDS ORDERED: rocuronium 10mg/ml inj IV ONE (08:26)
[2025-01-16] MEDS ORDERED: 0.9 % SODIUM CHLORIDE 10 ML VIAL ONE (08:51)
[2025-01-16] MEDS ORDERED: ePHEDrine 50MG/ML INJ. ONE (08:51)
[2025-01-16] MEDS ORDERED: glycopyrrolate 0.2mg/ml inj ONE (09:11)
[2025-01-16] MEDS: labetalol 20mg/4ml (5mg/ml) syringe IV PRN (09:43)
[2025-01-16] MEDS: ipratropium/albuterol 3ml nebule NEB ONE (10:09)
--- NOTE | 2025-01-16 10:12 | RADIOLOGY REPORT ---
EXAM: DI CHEST,SINGLE VIEW Indication: POST OP Technique: Single frontal view of the chest was obtained Comparison: CT CT CHEST ION on DOS: 01/12/25, CT CHEST WO CON on DOS: 12/30/24, CHEST,TWO VIEWS on DOS: 06/29/22 FINDINGS: Lines and Tubes: None Lungs: Right lower lung mass. Pleura: No effusion. No pneumothorax. Cardiomediastinal contours: Unremarkable Bones: No acute osseous abnormality. IMPRESSION: Right lower lung mass.No acute cardiopulmonary disease.
--- NOTE | 2025-01-17 08:13 | OPERATIVE REPORT ---
DATE OF SURGERY: 01/16/2025 DICTATING PHYSICIAN: Rolando Oconnell MD PROCEDURES: Bronchoscopy with the robotic system and also an EBUS, regular bronchoscopy with suctioning in both lungs in addition to BAL under general anesthesia. PREOPERATIVE DIAGNOSIS: The patient with a right lower lobe mass. POSTOPERATIVE DIAGNOSIS: The patient with a right lower lobe mass. COMPLICATIONS: None. No pneumothorax listed immediately. DESCRIPTION OF PROCEDURE: The patient signed a consent after indications for potential complications were explained. After we took the usual timeout, we already had the mass labeled through the robotic bronchoscopy system that allowed us to get a catheter into the mass. Once we got navigated catheter into the mass and we pulled out the guidewire while then camera in it and then we revised the position of the catheter with radial ultrasound to make sure we were right into the mass. We could not get a good signal, so the signal looked at the catheter was on the side, so I did a spin with a cone beam CT scan at the bedside and redirected the catheter to that place. Once we knew we were in the right place, we collected multiple samples with a needle, fine needle aspiration, transbronchial fine needle aspirations and also transbronchial biopsies. Obtained about 5 different passes in a [place] and in the center also. After that, we switched over to the endobronchial ultrasound bronchoscope. There were small less than 0.5 cm lymph nodes throughout zones 7, 10R, and 10L and I targeted those and we have already done a BAL and suctioned the blood that was present and we concluded the procedure. The patient tolerated the procedure well. We made sure that there was no pneumothorax. The patient did not have any. Rolando Oconnell MD TID: [id number] RECEIPT: [id number] NABEEL/ELIDA/KORI
--- NOTE | 2025-01-20 16:12 | PATHOLOGY REPORT ---
[facility] [address] [place] [address] NON-PREPRESS TECHNICIAN CYTOLOGY REPORT CaseNumber: [id number] Surgeon:Rolando Oconnell M.D. CLINICAL INFORMATION CLINICAL INFORMATION: Evaluation of pulmonary nodule. An approximate 15 mm right lower lobe nodule me asured approximately 14 mm on the prior study when measured in the same plane and is likely unchanged . A 2-3 mm left lingular nodule appears unchanged. (mk) DIAGNOSIS DIAGNOSIS: A.LUNG. RIGHT LOWER LOBE; FINE NEEDLE ASPIRATION - NEGATIVE FOR MALIGNANT CELLS. - SPARSE MIXED INFLAMMATION. DIAGNOSIS: B.LUNG, RIGHT LOWER LOBE; BIOPSY - NEGATIVE FOR MALIGNANT CELLS. - REACTIVE BRONCHIAL AND ALVEOLAR LUNG TISSUE. - SPARSE MIXED INFLAMMATION. DIAGNOSIS: C.LYMPH NODE, 7, 10R, 10L; FINE NEEDLE ASPIRATION - NEGATIVE FOR MALIGNANT CELLS. - SPARSE MIXED INFLAMMATION. - SPECIAL STAINS ARE NEGATIVE FOR FUNGAL ELEMENTS. MICROSCOPIC DESCRIPTION A. LUNG. RIGHT LOWER LOBE MICROSCOPIC DESCRIPTION: One H&E stained cell block and one double cytospin slide are examined. The c ell block consists of limited fragments of fibrin and fibrous tissue, intermixed with neutrophils, ma crophages, and lymphocytes. Rare reactive bronchial epithelial cells with mildly increased nuclear si ze and terminal cilia, are present. The cytospin slide is of sparse cellularity but shows similar fin dings. 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 B. LUNG, RIGHT LOWER LOBE MICROSCOPIC DESCRIPTION: One H&E stained slide is examined. It shows fragments of bronchial and alveo lar lung tissue with mild reactive features. The interstitium shows minimally increased mixed inflamm ation. The alveolar spaces show mildly increased numbers of pulmonary macrophages. I do not see evide nce of malignant cells. Immunohistochemical stains are performed. TTF1 and CK7 highlight scattered pn eumocytes with uniform nuclear size. A CD68 highlights histiocytes. Granulomas are not appreciated. C. LYMPH NODE, 7, 10R, 10L MICROSCOPIC DESCRIPTION: One H&E cell block and one double cytospin slide are examined. The cell bloc k shows sparse mixed inflammation intermixed with reactive bronchial epithelial cells. GMS and mucica rmine special stains are negative for fungal elements. Definitive lymphoid tissue is not appreciated. The double cytospin slide shows predominately acellular mucin. GROSS DESCRIPTION A. LUNG. RIGHT LOWER LOBE GROSS DESCRIPTION: Received labeled with the patient's name, number, and "RLL FNA" is a 15 mL bottle of slightly cloudy cytostat red. One double cytospin slide and one cell block are prepared. The cell block is submitted as A1. The time at which the specimen is removed is 0846. The time at which the specimen is placed in formalin is 0846. (cs) B. LUNG, RIGHT LOWER LOBE GROSS DESCRIPTION: Received in a container of formalin labeled with the patient's name, number, and " Rt LL" is a 0.5 x 0.4 x 0.2 cm aggregate of irregularly-shaped pieces of pink-fernández tissue submitted en tirely as B1. The time at which the specimen was removed was not provided. The time at which the spec imen was placed in formalin was not provided. C. LYMPH NODE, 7, 10R, 10L GROSS DESCRIPTION: Received labeled with the patient's name, number, and "Station #7, 10R, 10L" is a 12.5 mL bottle of slightly cloudy cytostat red. One double cytospin slide and one cell block are prep ared. The cell block is submitted as C1. The time at which the specimen is removed is 09. The daly e at which the specimen is placed in formalin is 0903. (cs) Electronically signed by: Remi Humphrey, 01/20/2025 3:34:00 PM
== END 2025-01-16 10:30 | disposition home or self-care (01) ==
LOC: PAS 05:56
PROVIDERS: ATTEND Internal Medicine Critical Care Medicine
DX: R22.2 Localized swelling, mass and lump, trunk (principal); I10 Essential (primary) hypertension; I25.10 Atherosclerotic heart disease of native coronary artery without angina pectoris; J44.9 Chronic obstructive pulmonary disease, unspecified; I48.91 Unspecified atrial fibrillation; I73.9 Peripheral vascular disease, unspecified; I25.2 Old myocardial infarction; Z86.73 Personal history of transient ischemic attack (TIA), and cerebral infarction without residual deficits; Z87.442 Personal history of urinary calculi; Z79.01 Long term (current) use of anticoagulants; Z79.899 Other long term (current) drug therapy; Z95.818 Presence of other cardiac implants and grafts
CPT/HCPCS: 31624; 31627; 31628; 31629; 31653; 36415; 71045; 71250; 80053; 82948; 85025; 87015; 87070; 87116; 87206; 88173; 88305; 88312; 88341; 88342; 94640; 94760; J1100; J2003; J2250; J2405; J2704; J2710; J3010; J3490; J7120; Z7506; Z7508; Z7512; 31622; 31625; 31626; 31654; A4618